=== PATIENT | female | born 1970 | race African-American/Black ===

== ENCOUNTER → 2022-04-28 14:21 | Outpatient (CLI) | payer OTHER, SELFPAY ==
--- NOTE | ~2022-04-28 | MR_ITS ---
EXAMINATION: MR cervical spine wo con DATE: 04/28/2022 15:06 INDICATION: Neck pain. TECHNIQUE: Magnetic resonance imaging (MRI) of the cervical spine was performed without intravenous c ontrast. COMPARISON: None FINDINGS: There is kyphosis of cervical spine. There is mild chronic anterior wedging of C6 vertebral body. There is mildly decreased disc height at C3-C4 at C4-C5, moderately decreased disc height at C 5-C6, and mildly decreased disc height at C6-C7. The spinal cord signal intensity is normal. The foll owing disc levels are specifically discussed: C2-C3: There is a central protrusion. There is no uncovertebral joint osteoarthritis. There is modera te bilateral facet joint osteoarthritis. There is no neural foraminal stenosis. There is no central c anal stenosis. C3-C4: There is a right central extrusion. There is moderate right and mild left uncovertebral joint osteoarthritis. There is mild bilateral facet joint osteoarthritis. There is moderate right and mild left neural foraminal stenosis. There is mild central canal stenosis with ventral indentation of the spinal cord. C4-C5: The disc is bulging. There is moderate bilateral uncovertebral joint osteoarthritis. There is mild bilateral facet joint osteoarthritis. There is moderate right and mild left neural foraminal christian nosis. There is moderate central canal stenosis with ventral and dorsal indentation of the spinal cor d. C5-C6: The disc is bulging. There is severe bilateral uncovertebral joint osteoarthritis. There is mi ld bilateral facet joint osteoarthritis. There is moderate right and mild left neural foraminal steno sis. There is moderate central canal stenosis with ventral and dorsal indentation of the spinal cord. C6-C7: The disc is bulging. There is moderate bilateral uncovertebral joint osteoarthritis. There is no facet joint osteoarthritis. There is mild bilateral neural foraminal stenosis. There is mild centr al canal stenosis. C7-T1: There is a central extrusion. There is no uncovertebral joint osteoarthritis. There is mild bi lateral facet joint osteoarthritis. There is no neural foraminal stenosis. There is mild central clare l stenosis. IMPRESSION: 1. Moderate cervical spondylosis. Reviewed, dictated and finalized at location A. WORK WASHER
== END ==
DX: M47.892 Other spondylosis, cervical region (principal)
CPT/HCPCS: 72141

== ENCOUNTER 2022-05-25 08:08 | Emergency (ER) | payer OTHER, SELFPAY ==
--- NOTE | ~2022-05-25 | XR_ITS ---
EXAMINATION: XR ankle RT min 3V INDICATION: Right ankle pain, initial encounter TECHNIQUE: Four views of the right ankle are obtained. COMPARISON: None available FINDINGS: There is diffuse soft tissue swelling of the ankle. A tiny heterotopic ossification is seen distal to the lateral malleolus. There is also subtle cortical irregularity at the distal aspect of the medial malleolus. Cortical irregularity is also noted at the dorsum of the navicular which has a chronic appearance. Posterior and plantar calcaneal enthesophytes are noted. IMPRESSION: 1. Small avulsion injury at the tip of the lateral malleolus and possible avulsion at the tip of the medial malleolus. Reviewed, dictated and finalized at location L. L PROGRAMMER IMPRESSION: 1. Small avulsion injury at the tip of the lateral malleolus and possible avuls ion at the tip of the medial malleolus.
[2022-05-25 08:14] VITALS: BP 114/68; PULSE 91; RESP 16; TEMP 36.4; O2SAT 96
--- NOTE | 2022-05-25 08:53 | ED.LOWEXIN ---
HPI - Extremity Injury (Lower) General Chief Complaint: Extremity Injury, Lower Stated Complaint: fall at gym, R ankle pain Time Seen by Provider: 05/25/22 08:22 Source: patient Mode of arrival: ambulatory Limitations: no limitations History of Present Illness HPI Narrative: 51-year-old otherwise healthy here with complaints of right ankle pain since yesterday. Patient states that he twisted her ankle while getting down the stairs at [employer], having difficulty in bearing weight she denies any other injuries MD complaint: ankle injury Onset (ago): day(s) (1) Injury: Right: ankle Type of Injury: inversion Place: street/outdoors Severity: moderate Severity scale (1-10): 5 Relieving factors: rest Exacerbating factors: weight bearing Associated symptoms: swelling Other symptoms: none Related Data Allergies Allergy/AdvReac Type Severity Reaction Status Date / Time Sulfa (Sulfonamide Allergy Unknown HIVES Unverified 11/02/17 09:00 Antibiotics) Review of Systems Review of Systems: All systems reviewed & are unremarkable except as noted in HPI and below Constitutional: Constitutional: Reports no additional constitutional complaints Eyes: Eyes: Reports no additional eye complaints ENT: Reports system reviewed and no additional complaints, except as documented Cardiovascular: Cardiovascular: Reports no additional cardiovascular complaints Respiratory: Respiratory: Reports no additional respiratory complaints Musculoskeletal: Musculoskeletal: Reports as per HPI Neurologic: Reports system reviewed and no additional complaints, except as documented Exam Narrative: GENERAL: Well-appearing, well-nourished, and in no acute distress. HEAD: Normocephalic, atraumatic. EYES: PERRLA and EOMI. NECK: Supple. CHEST: Clear to auscultation. No respiratory distress. HEART: Regular rate and rhythm. No murmur heard. Normal peripheral pulses. ABDOMEN: Soft, nontender, nondistended, normal active bowel sounds. EXTREMITIES: Normal range of motion. Examination of the right ankle shows moderate amount of soft tissue swelling, no deformity. SKIN: Warm, dry, no rash. NEURO: No focal deficits. Alert and oriented x3. PSYCH: Normal mood and affect. Course Course Emergency Course: Informed patient about her x-ray findings. She states that she follows with a foot and ankle doctor and she would like to follow-up with her. Vital Signs Vital signs: Vital Signs Temperature 36.4 C 05/25/22 08:14 Pulse Rate 91 05/25/22 08:14 Respiratory Rate 16 05/25/22 08:14 Blood Pressure 114/68 05/25/22 08:14 Pulse Oximetry 96 05/25/22 08:14 Oxygen Delivery Room Air 05/25/22 08:14 Temperature 36.4 C 05/25/22 08:14 Pulse Rate 91 05/25/22 08:14 Respiratory Rate 16 05/25/22 08:14 Blood Pressure 114/68 05/25/22 08:14 Pulse Oximetry 96 05/25/22 08:14 Oxygen Delivery Room Air 05/25/22 08:14 MDM - Extremity Injury (Lower) MDM Narrative Medical decision making narrative: 51-year-old otherwise healthy here with complaints of right ankle pain and swelling after twisting injury yesterday on exam she has moderate amount of soft tissue swelling will obtain x-ray of the ankle. Imaging Data My impression: Avulsion fracture of both the malleoli, soft tissue swelling Radiologist's impression: ITS Impressions Ankle X-Ray 05/25/22 08:28 IMPRESSION: 1. Small avulsion injury at the tip of the lateral malleolus and possible avulsion at the tip of the medial malleolus. Discharge Plan Discharge Clinical Impression: Avulsion fracture of ankle Patient Disposition: Home, Self-Care Condition: Stable Instructions: Ankle Fracture (DC) Additional Instructions: Continue to use your crutches ibuprofen for pain, keep your leg elevated, follow-up with your foot and ankle surgeon. Prescriptions: New ibuprofen 600 mg tablet 600 mg PO TID PRN (Reason: pain) Qty: 30 0RF Follow-up/Referr
== END 2022-05-25 09:33 | disposition home or self-care (01) ==
PROVIDERS: Emergency Provider Family Medicine
DX: S82.61XA Displaced fracture of lateral malleolus of right fibula, initial encounter for closed fracture (principal); X50.0XXA Overexertion from strenuous movement or load, initial encounter
CPT/HCPCS: 73610; 99283

== ENCOUNTER 2022-09-25 10:55 | Emergency (ER) | payer OTHER, SELFPAY ==
--- NOTE | ~2022-09-25 | CT_ITS ---
EXAMINATION: CTA chest PE protocol DATE: 09/25/2022 12:11 INDICATION: Chest pain and shortness of breath TECHNIQUE: Computed tomography angiography (CTA) of the chest was performed with 100 mL Omnipaque-350 intravenous contrast timed to evaluate the pulmonary arteries. Coronal maximum intensity projection 3D-reconstructions were created by the technologist. The dose-length product (DLP) was 366.91 mGy-cm. Automated exposure control and iterative reconstruction technique were employed. COMPARISON: 10/21/2016 FINDINGS: The pulmonary arteries are well-opacified. No pulmonary embolism is identified. There is mi ld dependent atelectasis. The lungs are free of focal airspace opacities. No pleural effusion or pneu mothorax. No pathologically enlarged thoracic lymph nodes are identified. The heart size is normal. T here is mild thoracic spondylosis. Surgical changes are noted in the stomach. IMPRESSION: 1. No pulmonary embolism or acute cardiopulmonary abnormality. Reviewed, dictated and finalized at location A.
--- NOTE | ~2022-09-25 | XR_ITS ---
EXAMINATION: XR chest 1V portable INDICATION: Cough and shortness of breath TECHNIQUE: Portable AP chest at 1115 hours COMPARISON: None available FINDINGS: There are minimal airspace opacities of the left lung base. No pleural effusion or pneumoth orax. The cardiomediastinal silhouette is normal. IMPRESSION: 1. Left basilar airspace opacity, consistent with atelectasis versus pneumonia. Reviewed, dictated and finalized at location A.
[2022-09-25 11:00] VITALS: BP 116/74; PULSE 85; RESP 13; TEMP 36.8; O2SAT 100
--- NOTE | 2022-09-25 11:02 | ECG_ITS ---
Measurements Intervals [place] Rate: 77 P: 66 MT: 206 QRS: 16 QRSD: 72 T: 66 QT: 344 QTc: 391 Interpretive Statements SINUS RHYTHM BORDERLINE AV CONDUCTION DELAY BORDERLINE ECG NO PREVIOUS ECG AVAILABLE FOR COMPARISON Electronically Signed On 09-27-2022 6:22:01 CDT by Foster Cardenas D.O.
[2022-09-25 11:12] LABS: Basophils Percent Auto 0.5 % (0.2-1.2); Eosinophils Absolute Auto 0.1 K/mm3 (0-0.3); Eosinophils Percent Auto 1.7 % (0-4.4); Hematocrit 34.9 % (37.0-47.0); Hemoglobin 11.3 g/dL (12.0-15.0); Immature Granulocyte Absolute 0.01 K/mm3 (0.00-0.031); Immature Granulocyte Percent A 0.2 % (0-0.5); Lymphocytes Absolute Auto 1.23 K/mm3 (0.9-3.2); Lymphocytes Percent Auto 30.1 % (18.3-44.2); Mean Corpuscular HGB Conc 32.4 g/dl (32-36); Mean Corpuscular Hemoglobin 27.7 pg (26-34); Mean Corpuscular Volume 85.5 fl (80-100); Mean Platelet Volume 9.7 fl (7.4-10.4); Monocytes Absolute Auto 0.4 K/mm3 (0.1-0.6); Monocytes Percent Auto 9.8 % (2.6-8.5); Neutrophils Absolute Auto 2.4 K/mm3 (1.3-6.7); Neutrophils Percent Auto 57.7 % (45.5-73.1); Platelet Count Result 302 k/mm3 (150-375); Red Blood Count 4.08 M/mm3 (4.2-5.4); Red Cell Distribution Width 13.8 % (11.5-14.5); White Blood Count 4.1 K/mm3 (4.5-10.0)
[2022-09-25] MEDS: ASPIRIN 81 MG CHEWABLE TABLET 324 MG PO (11:15)
[2022-09-25 11:25] LABS: Alanine Aminotransferase 13 U/L (6-35); Albumin Level 4.3 g/dL (3.5-5.1); Alkaline Phosphatase 74 U/L (38-126); Anion Gap 6 mmol/L (8-16); Aspartate Amino Transferase 25 U/L (14-36); Bilirubin,Total 0.5 mg/dL (0.2-1.3); Blood Urea Nitrogen 13 mg/dL (7-17); Calcium 8.6 mg/dL (8.4-10.2); Carbon Dioxide 30 mmol/L (22-30); Chloride 102 mmol/L (98-107); Estimated CRCL calculation 54 ml/min; Estimated Glomerular Filt Rate 57; Glucose 84 mg/dL (65-110); Lipase 156 U/L (23-300); Potassium 3.6 mmol/L (3.4-5.0); Sodium 138 mmol/L (137-145)
[2022-09-25 11:30] LABS: INR 0.9; Prothrombin Time 12.8 Seconds (11.1-14.7)
[2022-09-25 11:31] LABS: Partial Thromboplastin Time 27.3 SECONDS (22.3-36.8)
[2022-09-25 11:36] LABS: Troponin I < 0.012 ng/mL (0.000-0.034)
--- NOTE | 2022-09-25 11:41 | ED.CHESTPAIN ---
HPI - Chest Pain General Chief Complaint: Chest Pain Stated Complaint: cough, chest pain Time Seen by Provider: 09/25/22 10:57 History of Present Illness HPI narrative: 52-year-old female presented to the emergency department for evaluation of intermittent chest pain increased cough and shortness of breath. Patient states that the end of July she was diagnosed with COVID. Patient states she has had persistent cough since then. Patient reports that she also had a injury to her right leg and about the same time that she was diagnosed with COVID. Patient states he did have some increased swelling of the right leg but the swelling improved once she took off her walking boot. Patient states she was previously diagnosed with a DVT and does states she has had some right calf pain previously. Patient is unsure of what was the underlying cause of her previous DVT. Patient is also on hormone replacement therapy. Patient denies any personal history of coronary disease but does have a family history. Related Data Home Medications Medication Instructions Recorded Confirmed ascorbic acid 125 mg-collagen, cap PO 05/28/22 07/20/22 hydrolyzed 740 mg capsule (Collagen Plus Vitamin C) biotin 1 mg capsule 1 mg PO DAILY 05/28/22 07/20/22 dextroamphetamine-amphetamine 30 30 mg PO DAILY 05/28/22 07/20/22 mg tablet (Adderall) estradiol 0.5 mg tablet 0.5 mg PO DAILY 05/28/22 07/20/22 lisinopril 10 mg tablet 10 mg PO DAILY 05/28/22 07/20/22 thumoisc-iuafutof-jjyi 45 mg-folic cap PO 05/28/22 07/20/22 acid 800 mcg-vit K 120 mcg capsule (Bariatric Multivitamins) triamterene 37.5 1 cap PO DAILY 05/28/22 07/20/22 mg-hydrochlorothiazide 25 mg capsule Allergies Allergy/AdvReac Type Severity Reaction Status Date / Time Sulfa (Sulfonamide Allergy Unknown HIVES Verified 09/25/22 11:02 Antibiotics) Review of Systems Review of Systems: All systems reviewed & are unremarkable except as noted in HPI and below PMFSH Past Medical History Medical History HTN (hypertension) Right ankle pain Vision abnormalities Surgical History Surgical History History of bunionectomy 2020- Dr. Tavares History of cosmetic plastic surgery 2021- Dr. Saleh History of gastric bypass 2019- Dr. Wray History of total hysterectomy 2020-Dr. Ceja Family History Family History Unknown Asthma Hypertension Heart disease Diabetes mellitus Cerebrovascular accident HLD (hyperlipidemia) Arthritis Social History Social History Smoking status: Never smoker Alcohol intake: current Substance use: never Living arrangements: with family Gender identity (if verbalized by the patient): Female Exam Narrative: APPEARANCE: Well appearing, no pain, no distress, well-nourished. HEAD: normocephalic, atraumatic. EYES: PERRLA/EOMI, conjunctivae clear. NOSE: Normal no drainage NECK: Supple. No adenopathy, no masses. RESPIRATORY: Airway patent, respirations nonlabored. Clear to auscultation bilaterally, no rales, rhonchi, wheezing. CARDIOVASCULAR: Regular rate and rhythm without murmurs rubs or gallops. ABDOMINAL: Soft, nontender, nondistended, normal bowel sounds MUSCULOSKELETAL: Moves all extremities. No calf tenderness or edema at this time NEURO: Alert. Cranial nerves II through XII intact. Grossly intact SKIN: Warm, dry. Normal Color Course Course Emergency Course: 52-year-old female presented to the emergency department for evaluation of increased cough congestion chest pain and shortness of breath. CTA was ordered to evaluate for pulmonary embolism due to the patient's symptoms and high risk for PE. CT was negative for PE. Patient was afebrile with no leukocytosis. Patient hemoglobin is 11.3. Shara
[2022-09-25 12:18] VITALS: BP 112/63; PULSE 94; RESP 16; O2SAT 100
[2022-09-25 13:22] VITALS: BP 102/67; PULSE 75; RESP 15; O2SAT 100
[2022-09-25 14:37] LABS: Troponin I < 0.012 ng/mL (0.000-0.034)
[2022-09-25 14:51] VITALS: BP 108/77; PULSE 76; RESP 16; O2SAT 100
[2022-09-25 15:03] VITALS: BP 108/77; PULSE 73; RESP 14; O2SAT 100
== END 2022-09-25 15:10 | disposition home or self-care (01) ==
PROVIDERS: Emergency Provider Emergency Medicine
DX: R09.89 Other specified symptoms and signs involving the circulatory and respiratory systems (principal); R05.9 Cough, unspecified; R07.9 Chest pain, unspecified; I10 Essential (primary) hypertension; Z98.84 Bariatric surgery status; Z90.710 Acquired absence of both cervix and uterus; Z86.16 Personal history of COVID-19; Z86.718 Personal history of other venous thrombosis and embolism; Z79.890 Hormone replacement therapy; R91.8 Other nonspecific abnormal finding of lung field; R94.31 Abnormal electrocardiogram [ECG] [EKG]
CPT/HCPCS: 36415; 71045; 71275; 80053; 83690; 84484; 85025; 85610; 85730; 93005; 99284; A9270; Q9967